=== PATIENT | male | born 1935 | race Caucasian/White ===

== ENCOUNTER 2017-02-13 07:36 | Inpatient (IN) | payer OTHER ==
[~2017-02-13] VITALS: Ht 177.8 cm; Wt 83.0 kg
[~2017-02-13 07:36] MED LIST: ASPI-496 PO; BACITRACIN 50,000 UNIT ONE; CARV3.122 PO; CYAN1TAB29 PO; DIPH25CA61 PO; DOXY100T PO; GABA400C PO; HYDR12.58 PO; ROPI2TAB4 PO; TAMS0.4C2 PO; THROMBIN 5,000 UNIT VIAL TP ONE
[2017-02-13] MEDS ORDERED: LACTATED RINGERS 1,000 ML IV SCH (08:15)
[2017-02-13] MEDS ORDERED: REMIFENTANIL 2 MG ONE (08:33)
[2017-02-13] MEDS ORDERED: FENTANYL PF 250 MCG/5ML ONE (08:34)
[2017-02-13 08:43] VITALS: BP 131/79
[2017-02-13] MEDS ORDERED: CEFAZOLIN 1,000 MG ONE (09:20)
[2017-02-13] MEDS ORDERED: PROPOFOL 10 MG/ML, 50ML ONE (09:20)
[2017-02-13] MEDS ORDERED: PROPOFOL 10 MG/ML, 20ML ONE (09:20)
[2017-02-13] MEDS ORDERED: ONDANSETRON 2MG/ML, 2ML ONE (09:20)
[2017-02-13] MEDS ORDERED: SUCCINYLCHOLINE 20 MG/ML, 10ML ONE (09:20)
[2017-02-13] MEDS ORDERED: DEXAMETHASONE 4 MG/ML, 1ML ONE (09:20)
[2017-02-13 09:21] LABS: HEMATOCRIT 47.7 % (39.2-51.8); HEMOGLOBIN 15.9 g/dL (13.7-18.0); WHITE BLOOD COUNT 5.1 x10^3/uL (3.4-10)
[2017-02-13 09:33] LABS: BLOOD UREA NITROGEN 20 mg/dL (7-18)
[2017-02-13] MEDS ORDERED: BUPIVACAINE/PF-EPI 0.5% 1:200K INFIL ONE (09:51)
[2017-02-13] MEDS ORDERED: PROMETHAZINE 25 MG/ML, 1ML IV PRN (10:00)
[2017-02-13] MEDS ORDERED: HYDROmorphone 1 MG/ML, 1ML IV PRN (10:00)
[2017-02-13] MEDS ORDERED: HYDROcodone/APAP 7.5-325MG/15ML UDC PO PRN (10:00)
[2017-02-13] MEDS ORDERED: ONDANSETRON 2MG/ML, 2ML IVPush PRN (10:00)
[2017-02-13] MEDS ORDERED: EPHEDRINE 50 MG/ML, 1ML IVPush PRN (10:00)
[2017-02-13] MEDS ORDERED: OXYcodone 5 MG/5 ML ORAL.SOL UDC PO PRN (10:00)
[2017-02-13] MEDS ORDERED: hydrALAzine 20 MG/ML, 1ML IV PRN (10:00)
[2017-02-13] MEDS ORDERED: ACETAMINOPHEN 325 MG TABLET PO PRN (10:00)
[2017-02-13] MEDS ORDERED: LABETALOL 5MG/ML, 20ML IV PRN (10:00)
[2017-02-13] MEDS ORDERED: POTASSIUM CHLORIDE 10 MEQ in SODIUM CHLORIDE 0.9% 250 ML IV ONE (11:00)
[2017-02-13] MEDS ORDERED: FENTANYL PF 100 MCG/2ML ONE (11:10)
[2017-02-13] MEDS ORDERED: OXYcodone 5 MG/5 ML ORAL.SOL UDC ONE (11:10)
[2017-02-13] MEDS ORDERED: ACETAMINOPHEN 325 MG/10.15 ML UDC ONE (11:13)
[2017-02-13] MEDS ORDERED: ACETAMINOPHEN 650 MG/20.3 ML UDC ONE (11:13)
[2017-02-13] MEDS: FENTANYL PF 100 MCG/2ML IV PRN ×3 (11:17→11:59)
[2017-02-13] MEDS ORDERED: METHOCARBAMOL 1000MG/10 ML IVPB ONE (11:30)
[2017-02-13] MEDS ORDERED: METHOCARBAMOL 1,000 MG in DEXTROSE 5% 100 ML IV ONE (12:00)
[2017-02-13] MEDS ORDERED: HYDROcodone/APAP 10/325 MG TABLET PO PRN (13:30)
[2017-02-13] MEDS ORDERED: DIPHENHYDRAMINE 50 MG/ML, 1ML IM PRN (13:30)
[2017-02-13] MEDS ORDERED: BISACODYL 10 MG SUPP PR PRN (13:30)
[2017-02-13] MEDS ORDERED: PROMETHAZINE 25 MG/ML, 1ML IM PRN (13:30)
[2017-02-13] MEDS ORDERED: DIPHENHYDRAMINE 50 MG CAPSULE PO PRN (13:30)
[2017-02-13] MEDS ORDERED: DIPHENHYDRAMINE 50 MG/ML, 1ML IVPush PRN (13:30)
[2017-02-13] MEDS ORDERED: morphine SULFATE 10 MG/ML, 1ML IV PRN (13:30)
[2017-02-13] MEDS ORDERED: MAGNESIUM HYDROXIDE 8%, 30ML UDC PO PRN (13:30)
[2017-02-13] MEDS ORDERED: ONDANSETRON 2MG/ML, 2ML IV PRN (13:30)
[2017-02-13] MEDS ORDERED: OXYcodone IR 5MG TABLET PO PRN (14:30)
[2017-02-13] MEDS ORDERED: DIAZEPAM 5 MG/ML, 2ML IVPush PRN ×2 (14:30)
[2017-02-13 14:35] VITALS: BP 110/54
[2017-02-13] MEDS: D5%-0.9% NACL+KCL 20MEQ 1,000 ML IV SCH (14:46)
[2017-02-13] MEDS: CARVEDILOL 3.125 MG TABLET PO SCH (18:35)
[2017-02-13 19:26] VITALS: BP 150/65
[2017-02-13] MEDS: METHOCARBAMOL 750 MG in DEXTROSE 5% 100 ML IV SCH (20:58)
[2017-02-13] MEDS ORDERED: ROPINIROLE 1MG TABLET PO SCH (21:00)
[2017-02-13] MEDS ORDERED: ZOLPIDEM 5MG TABLET PO PRN (21:00)
[2017-02-13 23:05] VITALS: BP 140/79
[2017-02-14 03:30] VITALS: BP 125/72
[2017-02-14 05:42] LABS: HEMATOCRIT 43.6 % (39.2-51.8); HEMOGLOBIN 14.5 g/dL (13.7-18.0); WHITE BLOOD COUNT 11.4 x10^3/uL (3.4-10)
[2017-02-14 05:56] LABS: BLOOD UREA NITROGEN 16 mg/dL (7-18)
[2017-02-14] MEDS: METHOCARBAMOL 750 MG in DEXTROSE 5% 100 ML IV SCH (05:57)
[2017-02-14] MEDS: CARVEDILOL 3.125 MG TABLET PO SCH (05:58)
[2017-02-14 06:32] VITALS: BP 128/71
[2017-02-14] MEDS ORDERED: OXYcodone IR 5MG TABLET PO PRN ×2 (09:00→09:30)
[2017-02-14] MEDS ORDERED: GABAPENTIN 400 MG CAPSULE PO SCH (09:00)
[2017-02-14] MEDS ORDERED: SENNA/DOCUSATE TABLET PO SCH (09:00)
[2017-02-14] MEDS ORDERED: CYCLOBENZAPRINE 10 MG TABLET PO PRN (09:00)
[2017-02-14] MEDS ORDERED: TAMSULOSIN 0.4 MG CAP.ER.24H PO SCH (09:00)
[2017-02-14] MEDS ORDERED: HYDROCHLOROTHIAZIDE 12.5 MG CAPSULE PO SCH (09:00)
[2017-02-14] MEDS: D5%-0.9% NACL+KCL 20MEQ 1,000 ML IV SCH (10:45)
[2017-02-14] MEDS ORDERED: HEPARIN 5,000 UNITS/ML, 1ML SQ SCH (11:00)
[2017-02-14] MEDS ORDERED: POTASSIUM CHLORIDE 20 MEQ TAB.ER.PRT PO ONE (11:00)
[2017-02-14] MEDS ORDERED: ENOXAPARIN 80 MG/0.8 ML SQ ONE (11:30)
[2017-02-14 11:56] VITALS: BP 135/81
[2017-02-14] MEDS ORDERED: OXYC-302 PO (12:16)
[2017-02-14] MEDS ORDERED: CYCL-259 PO (12:17)
[2017-02-14] MEDS ORDERED: ROPI2TAB3 PO (12:18)
[2017-02-14] MEDS ORDERED: DOCU-30 PO (12:18)
[2017-02-15] MEDS ORDERED: METHOCARBAMOL 750 MG TABLET PO SCH (19:45)
== END 2017-02-14 12:48 | disposition home or self-care (01) | DRG 517 ==
LOC: ORIP 07:36 → 4NOR 12:55 → DCLOUNGE 02-14 12:10
PROVIDERS: ADMIT Neurological Surgery; ATTEND Neurological Surgery
PROC: 01NB0ZZ Release Lumbar Nerve, Open Approach (ICD-10-PCS; 2017-02-13)
PROC: 4A11X4G Monitoring of Peripheral Nervous Electrical Activity, Intraoperative, External Approach (ICD-10-PCS; principal; 2017-02-13 09:30)
DX: M48.06 Spinal stenosis, lumbar region (principal); E87.6 Hypokalemia; G25.81 Restless legs syndrome; M47.816 Spondylosis without myelopathy or radiculopathy, lumbar region; I10 Essential (primary) hypertension; Z79.899 Other long term (current) drug therapy; N40.0 Benign prostatic hyperplasia without lower urinary tract symptoms; M19.90 Unspecified osteoarthritis, unspecified site; H26.9 Unspecified cataract; E78.00 Pure hypercholesterolemia, unspecified; B05.9 Measles without complication; Z80.9 Family history of malignant neoplasm, unspecified; Z87.891 Personal history of nicotine dependence; Z85.9 Personal history of malignant neoplasm, unspecified
CPT/HCPCS: 36415; 72100; 80048; 85025; 85610; 85730; J0690; J1100; J2405; J2704; J3010; J3480; J0330; J2800; J7050; J7120